=== PATIENT | male | born 1980 | race Caucasian/White ===

== ENCOUNTER 2017-08-25 18:29 | Emergency (ER) | payer MEDICAID, OTHER ==
[2017-08-25] MEDS ORDERED: DIPH/PERTUSS(ACELL)/TETANUS VAC/PF 0.5 ML SYR (>=10YO) IM ONE (19:23)
--- NOTE | 2017-08-25 19:24 | ER Document Report ---
ED Medical Screen (RME) - General Chief Complaint: Laceration Stated Complaint: HAND LACERATION Time Seen by Provider: 08/25/17 19:22 TRAVEL OUTSIDE OF THE [place] IN LAST 30 DAYS: No - HPI Notes: 08/25/17 19:23 Patient is a 37-year-old male no significant past medical history presents to the ED complaining of a left hand laceration prior to arrival. Patient's tetanus is not up-to-date. He still able to move his hand without any difficulties. No other concerns or complaints at this time. Denies any drug allergies. I have treated and performed a rapid initial assessment of this patient. A comprehensive ED assessment and evaluation of the patient, analysis of test results and completion of medical decision making process will be conducted by additional ED providers. PHYSICAL EXAMINATION: GENERAL: Well-appearing, well-nourished and in no acute distress. A&Ox4. Answers questions appropriately. LUNGS: Breath sounds clear to auscultation bilaterally and equal. No wheezes rales or rhonchi. HEART: Regular rate and rhythm without murmurs, rubs, gallops. MS: 4cm superficial irregular laceration posterior left hand. N/V intact distal. NEUROLOGICAL: Normal speech, normal gait. PSYCH: Normal mood, normal affect. - Related Data Allergies/Adverse Reactions: No Known Allergies Allergy (Verified 08/25/17 18:34) Past Medical History Renal/ Medical History: Denies: Hx Peritoneal Dialysis - Immunizations Immunizations up to date: Yes Hx Diphtheria, Pertussis, Tetanus Vaccination: Yes Physical Exam - Vital signs Vitals: Temp Pulse Resp BP Pulse Ox 99.2 F 88 16 131/73 H 98 08/25/17 18:50 08/25/17 18:50 08/25/17 18:50 08/25/17 18:50 08/25/17 18:50 Course - Vital Signs Vital signs: Temp Pulse Resp BP Pulse Ox 99.2 F 88 16 131/73 H 98 08/25/17 18:50 08/25/17 18:50 08/25/17 18:50 08/25/17 18:50 08/25/17 18:50
--- NOTE | 2017-08-25 19:26 | ER Document Report ---
HPI - HPI Patient complains to provider of: Cut dorsum of left hand Onset: This afternoon - 12:30 PM Onset/Duration: Sudden Pain Level: 5 Context: 37-year-old male cut dorsum of left hand at 1230 today on metal. He wrapped it up with duct tape and continue to work today. Tetanus is not current. He basically could not use his third finger because he could not straighten it out all day. Associated Symptoms: None Exacerbated by: Denies Relieved by: Denies Similar symptoms previously: No Recently seen / treated by doctor: No - ROS ROS below otherwise negative: Yes Systems Reviewed and Negative: Yes All other systems reviewed and negative Past Medical History - General Information source: Patient - Social History Smoking Status: Unknown if Ever Smoked Frequency of alcohol use: None Drug Abuse: None Lives with: Family Family History: Reviewed & Not Pertinent Patient has suicidal ideation: No Patient has homicidal ideation: No - Medical History Medical History: Negative Renal/ Medical History: Denies: Hx Peritoneal Dialysis Surgical Hx: Negative - Immunizations Immunizations up to date: Yes Hx Diphtheria, Pertussis, Tetanus Vaccination: Yes Vertical Provider Document - CONSTITUTIONAL Agree With Documented VS: Yes Exam Limitations: No Limitations - INFECTION CONTROL TRAVEL OUTSIDE OF THE [place] IN LAST 30 DAYS: No - HEENT HEENT: Atraumatic - NECK Neck: Supple - MUSCULOSKELETAL/EXTREMETIES Musculoskeletal/Extremeties: Tender - Dorsum of left hand across the second to fourth mid metacarpals. He is unable to move or extend his third or middle finger. - NEURO Level of Consciousness: Awake, Alert Motor/Sensory: No Sensory Deficit Notes: unable to extend middle left finger, flexion is normal Course - Re-evaluation Re-evalutation: 08/25/17 19:35 I am concerned that extensor tendon was cut and retracted but I will explore the wound. 08/25/17 20:45 08/25/17 20:[address] Jarvis who said to irrigate it, does not need a splint, antibiotics, follow-up in the morning and they will schedule surgery for tendon repair, loosely approximate the wound edges - Vital Signs Vital signs: Temp Pulse Resp BP Pulse Ox 99.2 F 88 16 131/73 H 98 08/25/17 18:50 08/25/17 18:50 08/25/17 18:50 08/25/17 18:50 08/25/17 18:50 Procedures - Laceration/Wound Repair Left Finger 3rd digit Time completed: 21:40 Wound length (cm): 3 Wound's Depth, Shape: Linear Laceration pre-procedure: Sterile PPE donned Anesthetic type: 1% Lidocaine Volume Anesthetic (mLs): 6 Wound explored: Clean Irrigated w/ Saline (mLs): 500 Wound Repaired With: Sutures Suture Size/Type: 4:0, Prolene Number of Sutures: 3 - vertical mattress Layer Closure?: No Post-procedure wound care: Sterile dressing applied - bacitracin Post-procedure NV exam normal: Yes Complications: No Discharge - Discharge Clinical Impression: extensor tendon laceration 3rd digit Cut of left hand Qualifiers: Encounter type: initial encounter Qualified Code(s): S61.402A - Unspecified open wound of left hand, initial encounter Condition: Good Disposition: HOME, SELF-CARE Instructions: Laceration Care (OM), Tendon Laceration (OM), Tendon Laceration Referral ([facility]), Tetanus Immunization Given ([facility]) Additional Instructions: call 1st thing in the morning for orthopedic appt tomorrow so they can set up surgery to repair the tendon keep dressing on and clean motrin for pain tylenol for pain to er any concerns Prescriptions: Ibuprofen [Motrin 800 mg Tablet] 800 mg PO Q8HP PRN #30 tablet PRN Reason: Cephalexin Monohydrate [Keflex 500 mg Capsule] 500 mg PO QID #28 capsule Referrals: JAVI BUCKNER MD [ACTIVE STAFF] - Follow up tomorrow
[2017-08-25] MEDS ORDERED: ONDANSETRON 4 MG TAB.RAPDIS PO ONE (19:34)
[2017-08-25] MEDS ORDERED: ACETAMINOPHEN 325 MG TABLET PO ONE (19:34)
[2017-08-25] MEDS ORDERED: IBUPROFEN 800 MG TABLET PO ONE (19:34)
[2017-08-25] MEDS ORDERED: LIDOCAINE 1% INJ-PF (10 MG/ML) 30 ML SDV INJ ONE (19:35)
--- NOTE | 2017-08-25 19:56 | RADIOLOGY REPORT (SQ) ---
EXAM DESCRIPTION: HAND LEFT 3 VIEWS COMPLETED DATE/TIME: 08/25/2017 7:41 pm REASON FOR STUDY: metal cut to dorsal left hand COMPARISON: None. EXAM PARAMETERS: NUMBER OF VIEWS: Three views. TECHNIQUE: AP, lateral and oblique radiographic images acquired of the left hand. LIMITATIONS: None. FINDINGS: MINERALIZATION: Normal. BONES: No acute fracture or dislocation. No worrisome bone lesions. JOINTS: No effusions. SOFT TISSUES: No soft tissue swelling. No foreign body. OTHER: No other significant finding. IMPRESSION: NEGATIVE STUDY OF THE LEFT HAND. NO RADIOGRAPHIC EVIDENCE OF ACUTE INJURY. TECHNICAL DOCUMENTATION: JOB ID: [id number] [employer]- All Rights Reserved Reading location - IP/workstation name: [email or web address]
[2017-08-25] MEDS ORDERED: CEFAZOLIN 1 GM/D5W RTU 1 GM/50 ML RTUPB IV ONE (20:46)
[2017-08-25] MEDS ORDERED: CEFAZOLIN INJ 1 GM VIAL IM ONE (20:56)
[2017-08-25 22:05] VITALS: BP 143/87
== END 2017-08-25 22:05 | disposition home or self-care (01) ==
LOC: ER 18:29
PROC: 0HQGXZZ Repair Left Hand Skin, External Approach (ICD-10-PCS; principal; 2017-08-25)
DX: S61.412A Laceration without foreign body of left hand, initial encounter (principal); W26.9XXA Contact with unspecified sharp object(s), initial encounter; Y99.0 Civilian activity done for income or pay
CPT/HCPCS: 99283; 96372; 90471; 73130; 90715; 12002; J0690; S0119; J3490

== ENCOUNTER 2017-09-02 05:31 | Day surgery (SDC) | payer OTHER, MEDICAID ==
[~2017-09-02 05:31] MED LIST: CEFAZOLIN SODIUM 2 GM in DEXTROSE 5%-WATER 100 ML IV PRN
[2017-09-02] MEDS ORDERED: ALBUTEROL SULFATE 0.083% NEB 2.5 MG/3 ML AMPUL NEB ONE (05:59)
[2017-09-02 06:00] LABS: HEMATOCRIT 43.7 % (37.9-51.0); HEMOGLOBIN 14.8 g/dL (13.5-17.0); MEAN CORPUSCULAR HEMOGLOBIN 31.1 pg (27.0-33.4); MEAN CORPUSCULAR HGB CONC 33.8 g/dL (32.0-36.0); MEAN CORPUSCULAR VOLUME 92 fl (80-97); PLATELET COUNT 241 10^3/uL (150-450); RED BLOOD COUNT 4.76 10^6/uL (4.35-5.55); RED CELL DISTRIBUTION WIDTH 13.1 % (11.5-14.0); WHITE BLOOD COUNT 10.3 10^3/uL (4.0-10.5)
--- NOTE | 2017-09-02 06:04 | RADIOLOGY REPORT (SQ) ---
EXAM DESCRIPTION: XR CHEST 1 VIEW CLINICAL HISTORY: 37 years Male, pre op COMPARISON: None. NUMBER OF VIEWS/TECHNIQUE: 1/AP FINDINGS: Adequate lung volume, clear parenchyma, normal cardiac silhouette, and intact bony thorax. IMPRESSION: No acute cardiopulmonary findings.
[2017-09-02 06:16] LABS: ANION GAP 13 (5-19); BLOOD UREA NITROGEN 22 mg/dL (7-20); CALCIUM 9.7 mg/dL (8.4-10.2); CARBON DIOXIDE 26 mmol/L (22-30); CHLORIDE 110 mmol/L (98-107); GLUCOSE 95 mg/dL (75-110); POTASSIUM 4.5 mmol/L (3.6-5.0); SODIUM 148.5 mmol/L (137-145)
[2017-09-02] MEDS ORDERED: LIDOCAINE 2% INJ-PF (20 MG/ML) 10 ML AMPUL ONE (06:23)
[2017-09-02] MEDS ORDERED: MIDAZOLAM 2 MG/2 ML INJ ONE (06:24)
[2017-09-02] MEDS ORDERED: ACETAMINOPHEN 100 ML IV ONE (06:24)
[2017-09-02] MEDS ORDERED: DEXAMETHASONE SOD PHOSPHATE INJ 4 MG/1 ML VIAL ONE (06:24)
[2017-09-02] MEDS ORDERED: ONDANSETRON HCL INJ/PF 4 MG/2 ML SDV ONE (06:24)
[2017-09-02] MEDS ORDERED: FENTANYL CITRATE INJ/PF 100 MCG/2 ML AMPUL ONE ×2 (06:24→08:51)
[2017-09-02] MEDS ORDERED: PROPOFOL INJ 200 MG/20 ML VIAL IV ONE (06:25)
[2017-09-02] MEDS ORDERED: BUPIVACAINE HCL 0.5 % INJ/PF 30 ML SDV ONE (07:10)
[2017-09-02] MEDS ORDERED: FENTANYL CITRATE INJ/PF 100 MCG/2 ML AMPUL IV PRN ×3 (07:49)
[2017-09-02] MEDS ORDERED: MORPHINE SULFATE 10 MG/ML INJ IV PRN ×2 (07:49→08:03)
[2017-09-02] MEDS ORDERED: MEPERIDINE HCL/PF INJ 25 MG/1 ML DISP.SYRIN IV PRN (07:49)
[2017-09-02] MEDS ORDERED: DIPHENHYDRAMINE HCL 50 MG/ML VIAL IV PRN (07:49)
[2017-09-02] MEDS ORDERED: PROMETHAZINE HCL INJ 25 MG/1 ML VIAL IV PRN ×2 (07:49)
[2017-09-02] MEDS ORDERED: ONDANSETRON HCL INJ/PF 4 MG/2 ML SDV IV PRN ×2 (07:49→08:03)
--- NOTE | 2017-09-02 08:02 | Discharge Summary ---
Discharge Summary (SDC) - Discharge Final Diagnosis: Left Hand Extensor Tendon Laceration Date of Surgery: 09/02/17 Discharge Date: 09/02/17 Condition: Good Forms: ASU Anesthesia D/C Instruction, Discharge POC-Surgical Service Treatment or Instructions: Schedule Follow Up w/ Dr. Urbano Dobson @ [facility] for Surgery to be seen in 10-14 days or as scheduled [place]: [place]: [place]: Ice and elevate Keep splint clean/dry/intact. If your fingers become numb please unwrap the Luiz wrap but leave the splint in place, if the sensation does not return within 30 minutes please return to the emergency department. May begin finger range of motion attempting to make full fist. Please use ibuprofen (Motrin or Advil) 600-800 mg every 8 hours as needed for pain or fever DO NOT TAKE w/ TORADOL may use once TORADOL complete. You may also use acetaminophen (Tylenol) 1000 mg every 4-6 hours as needed for pain or fever. Please be aware that many medications contain acetaminophen, do not exceed a total of 1000 mg of acetaminophen every 6 hours. If ibuprofen and acetaminophen are not sufficient for your pain you may take the Percocet/Malinta. Please be aware that the Percocet/Malinta does contain Tylenol. Stool softener of choice when on pain medication. Prescriptions: Ketorolac Tromethamine [Toradol 10 mg Tablet] 10 mg PO Q8 PRN #10 tablet PRN Reason: Oxycodone HCl/Acetaminophen [Percocet 5-325 mg Tablet] 1 - 2 tab PO ASDIR PRN # 35 tablet PRN Reason: Referrals: URBANO DOBSON DO [ACTIVE STAFF] - 09/16/17 8:10 am Discharge Diet: As Tolerated Respiratory Treatments at Home: Deep Breathing/Coughing Discharge Activity: No Lifting Over 10 Pounds, No Lifting/Push/Pulling Report the Following to Your Physician Immediately: Fever over 101 Degrees, Unusual Bleeding, Redness, Swelling, Warmth, Increased Soreness
[2017-09-02] MEDS ORDERED: OXYCODONE-ACETAMINOPHEN 5-325 MG TABLET PO PRN (08:03)
--- NOTE | 2017-09-02 08:04 | Operative Report ---
Operative Report DATE OF SURGERY: 09/02/17 PREOPERATIVE DIAGNOSIS: Left Hand Extensor Tendon Laceration POSTOPERATIVE DIAGNOSIS: Left Hand Zone Extensor Tendon Laceration EDC Middle Finger OPERATION: Repair Left Hand Zone Extensor Tendon Laceration EDC Middle Finger SURGEON: DEO DOBSON ANESTHESIA: GA COMPLICATIONS: None ESTIMATED BLOOD LOSS: Minimal PROCEDURE: Indication for above procedure: 37-year-old male who sustained a laceration to dorsum of his hand. Patient was seen at the emergency room where the wound was irrigated and loosely closed and patient was told he had an extensor tendon laceration. He subsequently followed up at our office at which point on examination had notable extension lag of the middle finger with mild extension lag of the ring finger. Patient lacked strength against resistance at the MP joint with extension along with numbness on the dorsum of his hand. At that point we discussed treatment options including postoperative outcome, expectations and rehabilitation. After discussing risks and benefits decision was made to proceed with operative treatment. Procedure In Detail: Patient was seen and evaluated in the preoperative holding area. The LEFT upper extremity was initialized and marked. Patient received 2g of Ancef IV for bacterial prophylaxis. Patient was taken back to the operative room where transferred to the operative table and placed under general anesthesia. Once they were adequately anesthetized a nonsterile tourniquet was placed on the upper extremity. A surgical team debriefing was performed ensuring all instrumentation was available, the surgical procedure was discussed with possible concerns reviewed. The upper extremity was prepped with chlorhexidine and alcohol and draped in a sterile fashion. A timeout was done identifying correct patient, procedure and extremity everyone in attendance agree with this and verbalized no concerns. The extremity was exsanguinated the tourniquet was inflated to 250 mmHg. Patient's previous skin incision was opened and extended proximally and distally 1 cm. Blunt dissection was performed. Superficial veins that were transected from the original injury where identified and coagulated with bipolar cautery. The proximal and distal edges of the EDC to the middle finger was identified and found to have complete transection. The juncturae tendon slips were intact likely maintaining some of patient's extension at the MP joint. Once the proximal and distal edges of the middle finger extensor tendon was isolated repair was performed utilizing a running Silverskiold suture utilizing 4-0 FiberWire. This restored patient's normal MP tenodesis. There is no gapping of the repair site with wrist tenodesis. The wound was then copiously irrigated with normal saline. Compression was held for 2 minutes after the tourniquet was deflated. Any bleeding was controlled with bipolar cautery. The skin incision was then closed with 4-0 nylon suture. 10 cc of 0.5% Marcaine without epinephrine was injected for postoperative pain control. Wound was dressed with Xeroform 4 x 4's patient was placed in a volar resting splint maintaining slight hyperextension of the ring and middle finger at the MP joint leaving the IP joints free. Sponge counts, instrument counts, needle counts counts were correct. Patient was then awoken from anesthesia. Transferred from the operating room table to the operating room stretcher. There was no intraoperative complications patient tolerated procedure well stable to PACU. Postoperative plan: Patient will follow-up the office for 2 weeks for suture removal. He will be set up for occupational therapy fitted for a thermoplastic splint and follow zone extensor tendon protocol.
[2017-09-02 12:18] VITALS: BP 121/74
[2017-09-02] MEDS ORDERED: SUCCINYLCHOLINE CHLORIDE INJ 200 MG/10 ML VIAL ONE (16:09)
== END 2017-09-02 10:10 | disposition home or self-care (01) ==
LOC: OROUT 05:31
PROVIDERS: ATTEND Orthopaedic Surgery
DX: S66.822A Laceration of other specified muscles, fascia and tendons at wrist and hand level, left hand, initial encounter (principal); S61.412A Laceration without foreign body of left hand, initial encounter; W26.8XXA Contact with other sharp object(s), not elsewhere classified, initial encounter; Y92.69 Other specified industrial and construction area as the place of occurrence of the external cause; F17.210 Nicotine dependence, cigarettes, uncomplicated; E07.9 Disorder of thyroid, unspecified; Z79.899 Other long term (current) drug therapy
CPT/HCPCS: 36415; 85027; 80048; 71045; 94640; 26410; J2250; J3490 ×2; J0690; J1100; J3010; J0330; J2405; J2704; J0131; 1810

== ENCOUNTER → 2017-11-28 | Outpatient (CLI) | payer MEDICAID ==
[2017-11-28 12:12] LABS: URIC ACID 4.7 mg/dL (3.5-8.5)
[2017-11-28 12:18] LABS: C-REACTIVE PROTEIN < 5.0 mg/L (<10.0)
[2017-11-30 07:43] LABS: CYCLIC CITRUL PEPTIDE IGG/A AB 8 units (0-19)
== END ==
LOC: OD 10:44
PROVIDERS: ATTEND Orthopaedic Surgery
DX: M25.531 Pain in right wrist (principal)
CPT/HCPCS: 36415; 84550; 85652; 86038; 86140; 86200; 86430